=== PATIENT | male | born 1950 | race Caucasian/White ===

== ENCOUNTER 2018-01-16 13:23 | Inpatient (IN) | payer MEDICARE, OTHER ==
[2018-01-16 16:39] LABS: ADD MAN DIFF? NO
[2018-01-16 16:44] LABS: WHITE BLOOD COUNT 6.9 10^3/ul (4.8-10.8)
[2018-01-16 16:44] LABS: BASOPHILS % 0.4 % (0.0-2.0); EOSINOPHILS # 0.1 10^3/ul (0.0-0.5); EOSINOPHILS % 1.3 % (0.0-7.0); HEMATOCRIT 43.7 % (42.0-52.0); HEMOGLOBIN 14.5 g/dl (14.0-18.0); LYMPHOCYTES # 3.2 10^3/ul (0.8-2.9); LYMPHOCYTES % 46.8 % (15.0-51.0); MEAN CORPUSCULAR HEMOGLOBIN 30.1 pg (29.0-33.0); MEAN CORPUSCULAR HGB CONC 33.2 g/dl (32.0-37.0); MEAN CORPUSCULAR VOLUME 90.7 fl (82.0-101.0); MEAN PLATELET VOLUME 10.3 fl (7.4-10.4); MONOCYTE # 0.7 10^3/ul (0.3-0.9); MONOCYTES % 10.6 % (0.0-11.0); NEUTROPHIL # 2.8 10^3/ul (1.6-7.5); NEUTROPHILS % 40.8 % (39.0-77.0); PLATELET COUNT 178 10^3/UL (140-415); RED BLOOD COUNT 4.82 10^6/ul (4.70-6.10); RED CELL DISTRIBUTION WIDTH 13.6 % (11.5-14.5)
[2018-01-16 17:00] LABS: PROTIME 12.2 Sec (11.9-14.9)
[2018-01-16 17:03] LABS: ALANINE AMINOTRANSFERASE 46 IU/L (13-69); ALBUMIN 4.2 g/dl (3.3-4.9); ALBUMIN/GLOBULIN RATIO 1.31; ALKALINE PHOSPHATASE 67 IU/L (42-121); ANION GAP 16 (8-16); ASPARTATE AMINO TRANSFERASE 28 IU/L (15-46); BILIRUBIN,INDIRECT 0.4 mg/dl (0-1.1); BILIRUBIN,TOTAL 0.4 mg/dl (0.2-1.3); BLOOD UREA NITROGEN 18 mg/dl (7-20); CALCIUM 9.3 mg/dl (8.4-10.2); CARBON DIOXIDE 26 mmol/L (21-31); CHLORIDE 111 mmol/L (97-110); CREATININE 1.15 mg/dl (0.61-1.24); GLUCOSE 108 mg/dl (70-220); POTASSIUM 4.2 mmol/L (3.5-5.1); SODIUM 149 mmol/L (135-144); TOTAL PROTEIN 7.4 g/dl (6.1-8.1)
[2018-01-16 17:14] LABS: B-TYPE NATRIURETIC PEPTIDE 1740 PG/ML (0-125)
[2018-01-16 17:15] LABS: TROPONIN-I < 0.012 ng/ml (0.00-0.12)
[2018-01-16] MEDS: DILTIAZEM-D5W 125MG/125ML DRIP 125 ML IV (17:52)
[2018-01-16] MEDS: DILTIAZEM 50 MG INJ IV (17:53)
[2018-01-16] MEDS ORDERED: GLUCAGON 1 MG INJ IM (18:00)
[2018-01-16] MEDS ORDERED: ACETAMINOPHEN 325 MG TAB PO (18:00)
[2018-01-16] MEDS ORDERED: GLUCOSE GEL 15 GRAM TUBE PO ×2 (18:00)
[2018-01-16] MEDS ORDERED: MAGNESIUM HYDROXIDE 30ML CUP PO (18:00)
[2018-01-16] MEDS ORDERED: DOCUSATE SODIUM 100 MG CAP PO (18:00)
[2018-01-16] MEDS ORDERED: DEXTROSE 50% 50 ML SYRINGE IV ×2 (18:00)
[2018-01-16] MEDS ORDERED: GLUCOSE GEL 15 GRAM TUBE BUCCAL (18:00)
[2018-01-16] MEDS ORDERED: NACL 0.9% 3 ML SYG IV (18:00)
[2018-01-16] MEDS ORDERED: BISACODYL (EC) 5 MG TAB PO (18:00)
[2018-01-16] MEDS ORDERED: ONDANSETRON 4 MG INJ IV (18:00)
[2018-01-16] MEDS: INSULIN ASPART [NOVOLOG] 3 ML PEN SC ×2 (19:26→21:00)
[2018-01-16] MEDS ORDERED: APIXABAN 5 MG TABLET PO (21:00)
[2018-01-16] MEDS: CYCLOSPORINE 0.05% OPH DROPERETTE BOTH EYES (22:57)
[2018-01-16] MEDS: ALFUZOSIN (SR) 10 MG TAB PO (22:58)
[2018-01-16] MEDS: ATORVASTATIN 10 MG TAB PO (22:58)
[2018-01-16 23:23] LABS: CREATINE KINASE 109 IU/L (23-200)
[2018-01-16 23:36] LABS: CK INDEX 1.1
[2018-01-16 23:44] LABS: CK-MB 1.22 ng/ml (0.0-2.4); TROPONIN-I < 0.012 ng/ml (0.00-0.12)
[2018-01-17] MEDS: ACCU-CHEK XX (01:45)
[2018-01-17 06:19] LABS: ADD MAN DIFF? NO
[2018-01-17 06:25] LABS: BASOPHILS % 0.4 % (0.0-2.0); EOSINOPHILS # 0.1 10^3/ul (0.0-0.5); HEMATOCRIT 42.5 % (42.0-52.0); LYMPHOCYTES % 40.9 % (15.0-51.0); MEAN CORPUSCULAR HEMOGLOBIN 30.2 pg (29.0-33.0); MEAN CORPUSCULAR HGB CONC 32.9 g/dl (32.0-37.0); MEAN CORPUSCULAR VOLUME 91.6 fl (82.0-101.0); MEAN PLATELET VOLUME 10.4 fl (7.4-10.4); MONOCYTE # 0.6 10^3/ul (0.3-0.9); MONOCYTES % 11.2 % (0.0-11.0); NEUTROPHIL # 2.2 10^3/ul (1.6-7.5); NEUTROPHILS % 45.3 % (39.0-77.0); PLATELET COUNT 144 10^3/UL (140-415); RED BLOOD COUNT 4.64 10^6/ul (4.70-6.10); RED CELL DISTRIBUTION WIDTH 13.6 % (11.5-14.5)
[2018-01-17 06:25] LABS: WHITE BLOOD COUNT 4.9 10^3/ul (4.8-10.8)
[2018-01-17] MEDS: DILTIAZEM-D5W 125MG/125ML DRIP 125 ML IV ×2 (06:33→17:24)
[2018-01-17] MEDS: HYDROCODONE/APAP (5/325) TAB PO (06:43)
[2018-01-17 06:53] LABS: ANION GAP 12 (8-16); BLOOD UREA NITROGEN 17 mg/dl (7-20); CALCIUM 8.9 mg/dl (8.4-10.2); CARBON DIOXIDE 27 mmol/L (21-31); CHLORIDE 111 mmol/L (97-110); CHOL/HDL RATIO 4.2 RATIO; CHOLESTEROL 157 mg/dl (100-200); CREATININE 0.87 mg/dl (0.61-1.24); GLUCOSE 143 mg/dl (70-220); HDL CHOLESTEROL 37 mg/dl (30-78); LDL CHOLESTEROL,CALCULATED 95 mg/dl; MAGNESIUM 1.6 mg/dl (1.7-2.5); SODIUM 146 mmol/L (135-144); TRIGLYCERIDES 124 mg/dl (0-149)
[2018-01-17 07:31] LABS: HEMOGLOBIN A1C 5.6 % (0-5.9)
[2018-01-17] MEDS: INSULIN ASPART [NOVOLOG] 3 ML PEN SC ×4 (08:00→20:57)
[2018-01-17] MEDS: RIVAROXABAN 20 MG TABLET PO (08:36)
[2018-01-17] MEDS: ALLOPURINOL 100 MG TAB PO (08:36)
[2018-01-17] MEDS: CYCLOSPORINE 0.05% OPH DROPERETTE BOTH EYES ×2 (08:37→20:52)
[2018-01-17] MEDS: MAGNESIUM SULFATE 4 GM/100 ML 100 ML IVPB (11:53)
[2018-01-17] MEDS: ATORVASTATIN 10 MG TAB PO (20:52)
[2018-01-17] MEDS: ALFUZOSIN (SR) 10 MG TAB PO (22:49)
[2018-01-18] MEDS: ACCU-CHEK XX (01:34)
[2018-01-18 07:41] LABS: ADD MAN DIFF? NO
[2018-01-18 07:48] LABS: BASOPHILS % 0.4 % (0.0-2.0); EOSINOPHILS # 0.1 10^3/ul (0.0-0.5); EOSINOPHILS % 2.2 % (0.0-7.0); HEMATOCRIT 43.1 % (42.0-52.0); LYMPHOCYTES # 2.2 10^3/ul (0.8-2.9); LYMPHOCYTES % 49.2 % (15.0-51.0); MEAN CORPUSCULAR HEMOGLOBIN 29.8 pg (29.0-33.0); MEAN CORPUSCULAR HGB CONC 32.5 g/dl (32.0-37.0); MEAN CORPUSCULAR VOLUME 91.7 fl (82.0-101.0); MEAN PLATELET VOLUME 10.3 fl (7.4-10.4); MONOCYTE # 0.5 10^3/ul (0.3-0.9); MONOCYTES % 9.9 % (0.0-11.0); NEUTROPHIL # 1.7 10^3/ul (1.6-7.5); NEUTROPHILS % 38.1 % (39.0-77.0); PLATELET COUNT 142 10^3/UL (140-415); RED CELL DISTRIBUTION WIDTH 13.4 % (11.5-14.5)
[2018-01-18 07:48] LABS: WHITE BLOOD COUNT 4.5 10^3/ul (4.8-10.8)
[2018-01-18] MEDS: INSULIN ASPART [NOVOLOG] 3 ML PEN SC ×4 (08:15→21:00)
[2018-01-18] MEDS: CYCLOSPORINE 0.05% OPH DROPERETTE BOTH EYES ×2 (08:17→21:06)
[2018-01-18] MEDS: RIVAROXABAN 20 MG TABLET PO (08:17)
[2018-01-18] MEDS: ALLOPURINOL 100 MG TAB PO (08:17)
[2018-01-18 08:27] LABS: MAGNESIUM 1.5 mg/dl (1.7-2.5)
[2018-01-18 08:27] LABS: PHOSPHORUS 3.2 mg/dl (2.5-4.9)
[2018-01-18 08:29] LABS: ALANINE AMINOTRANSFERASE 37 IU/L (13-69); ALBUMIN 3.5 g/dl (3.3-4.9); ALKALINE PHOSPHATASE 52 IU/L (42-121); ANION GAP 13 (8-16); ASPARTATE AMINO TRANSFERASE 21 IU/L (15-46); BILIRUBIN,INDIRECT 0.5 mg/dl (0-1.1); BILIRUBIN,TOTAL 0.5 mg/dl (0.2-1.3); BLOOD UREA NITROGEN 21 mg/dl (7-20); CALCIUM 8.6 mg/dl (8.4-10.2); CARBON DIOXIDE 26 mmol/L (21-31); CHLORIDE 108 mmol/L (97-110); CREATININE 0.87 mg/dl (0.61-1.24); GLUCOSE 144 mg/dl (70-220); POTASSIUM 4.4 mmol/L (3.5-5.1); SODIUM 143 mmol/L (135-144); TOTAL PROTEIN 6.4 g/dl (6.1-8.1)
[2018-01-18] MEDS: MAGNESIUM SULFATE 3 GM in SOD CHLORIDE 0.9% 100 ML IVPB (14:12)
[2018-01-18] MEDS: ALFUZOSIN (SR) 10 MG TAB PO (21:06)
[2018-01-18] MEDS: ATORVASTATIN 10 MG TAB PO (21:07)
[2018-01-19] MEDS: ACCU-CHEK XX (02:00)
[2018-01-19] MEDS: INSULIN ASPART [NOVOLOG] 3 ML PEN SC ×5 (07:37→20:55)
[2018-01-19] MEDS: RIVAROXABAN 20 MG TABLET PO (08:26)
[2018-01-19] MEDS: ALLOPURINOL 100 MG TAB PO (08:26)
[2018-01-19] MEDS: ACETAMINOPHEN 325 MG TAB PO (08:37)
[2018-01-19] MEDS: CYCLOSPORINE 0.05% OPH DROPERETTE BOTH EYES ×2 (08:37→20:54)
[2018-01-19 11:16] LABS: ANION GAP 15 (8-16); BLOOD UREA NITROGEN 19 mg/dl (7-20); CALCIUM 9.1 mg/dl (8.4-10.2); CARBON DIOXIDE 23 mmol/L (21-31); CHLORIDE 112 mmol/L (97-110); CREATININE 0.91 mg/dl (0.61-1.24); GLUCOSE 177 mg/dl (70-220); MAGNESIUM 1.5 mg/dl (1.7-2.5); POTASSIUM 4.6 mmol/L (3.5-5.1); SODIUM 145 mmol/L (135-144)
[2018-01-19] MEDS: MAGNESIUM SULFATE 3 GM in DEXTROSE 5% 100 ML IVPB (14:38)
[2018-01-19] MEDS: ALFUZOSIN (SR) 10 MG TAB PO (20:54)
[2018-01-19] MEDS: ATORVASTATIN 10 MG TAB PO (20:54)
[2018-01-20] MEDS: ACCU-CHEK XX (02:00)
[2018-01-20 07:28] LABS: ADD MAN DIFF? NO
[2018-01-20 07:32] LABS: WHITE BLOOD COUNT 4.7 10^3/ul (4.8-10.8)
[2018-01-20 07:32] LABS: BASOPHILS % 0.6 % (0.0-2.0); EOSINOPHILS # 0.1 10^3/ul (0.0-0.5); EOSINOPHILS % 2.8 % (0.0-7.0); HEMATOCRIT 44.4 % (42.0-52.0); HEMOGLOBIN 14.7 g/dl (14.0-18.0); LYMPHOCYTES # 2.2 10^3/ul (0.8-2.9); LYMPHOCYTES % 47.6 % (15.0-51.0); MEAN CORPUSCULAR HEMOGLOBIN 30.1 pg (29.0-33.0); MEAN CORPUSCULAR HGB CONC 33.1 g/dl (32.0-37.0); MEAN PLATELET VOLUME 10.6 fl (7.4-10.4); MONOCYTE # 0.5 10^3/ul (0.3-0.9); NEUTROPHIL # 1.8 10^3/ul (1.6-7.5); PLATELET COUNT 138 10^3/UL (140-415); RED BLOOD COUNT 4.88 10^6/ul (4.70-6.10); RED CELL DISTRIBUTION WIDTH 13.3 % (11.5-14.5)
[2018-01-20 07:53] LABS: ANION GAP 8 (8-16); BLOOD UREA NITROGEN 21 mg/dl (7-20); CALCIUM 8.9 mg/dl (8.4-10.2); CARBON DIOXIDE 28 mmol/L (21-31); CHLORIDE 113 mmol/L (97-110); CREATININE 0.84 mg/dl (0.61-1.24); GLUCOSE 151 mg/dl (70-220); MAGNESIUM 1.7 mg/dl (1.7-2.5); POTASSIUM 4.2 mmol/L (3.5-5.1); SODIUM 145 mmol/L (135-144)
[2018-01-20] MEDS: HYDROCODONE/APAP (5/325) TAB PO (07:56)
[2018-01-20] MEDS: RIVAROXABAN 20 MG TABLET PO (08:24)
[2018-01-20] MEDS: ALLOPURINOL 100 MG TAB PO (08:24)
[2018-01-20] MEDS: CYCLOSPORINE 0.05% OPH DROPERETTE BOTH EYES ×2 (08:24→22:02)
[2018-01-20] MEDS: INSULIN ASPART [NOVOLOG] 3 ML PEN SC ×4 (08:25→21:00)
[2018-01-20] MEDS: DIAZEPAM 5 MG TAB PO (17:30)
[2018-01-20] MEDS: DIPHENHYDRAMINE 50 MG CAP PO (17:30)
[2018-01-20] MEDS: DIGOXIN 500 MCG INJ IV (18:07)
[2018-01-20] MEDS: AMIODARONE 150MG/D5W BOLUS 100 ML IV (18:07)
[2018-01-20] MEDS: AMIODARONE 900 MG in DEXTROSE 5% 482 ML IV (18:24)
[2018-01-20] MEDS: ATORVASTATIN 10 MG TAB PO (22:01)
[2018-01-20] MEDS: ALFUZOSIN (SR) 10 MG TAB PO (22:02)
[2018-01-21] MEDS: ACCU-CHEK XX (02:00)
[2018-01-21] MEDS: INSULIN ASPART [NOVOLOG] 3 ML PEN SC ×3 (08:00→17:30)
[2018-01-21 08:39] LABS: ADD MAN DIFF? NO
[2018-01-21] MEDS: CYCLOSPORINE 0.05% OPH DROPERETTE BOTH EYES (08:41)
[2018-01-21] MEDS: RIVAROXABAN 20 MG TABLET PO (08:41)
[2018-01-21] MEDS: ALLOPURINOL 100 MG TAB PO (08:41)
[2018-01-21 08:48] LABS: BASOPHILS % 0.5 % (0.0-2.0); EOSINOPHILS # 0.1 10^3/ul (0.0-0.5); EOSINOPHILS % 2.5 % (0.0-7.0); HEMATOCRIT 44.8 % (42.0-52.0); HEMOGLOBIN 14.8 g/dl (14.0-18.0); LYMPHOCYTES # 2.1 10^3/ul (0.8-2.9); MEAN CORPUSCULAR HEMOGLOBIN 30.2 pg (29.0-33.0); MEAN CORPUSCULAR VOLUME 91.4 fl (82.0-101.0); MEAN PLATELET VOLUME 10.9 fl (7.4-10.4); MONOCYTE # 0.5 10^3/ul (0.3-0.9); MONOCYTES % 11.5 % (0.0-11.0); NEUTROPHIL # 1.6 10^3/ul (1.6-7.5); NEUTROPHILS % 36.5 % (39.0-77.0); PLATELET COUNT 143 10^3/UL (140-415); RED CELL DISTRIBUTION WIDTH 13.1 % (11.5-14.5)
[2018-01-21 08:48] LABS: WHITE BLOOD COUNT 4.4 10^3/ul (4.8-10.8)
[2018-01-21 09:21] LABS: INR 1.06; PROTIME 13.9 Sec (11.9-14.9); PT RATIO 1.1
[2018-01-21 09:22] LABS: ANION GAP 14 (8-16); BLOOD UREA NITROGEN 21 mg/dl (7-20); CALCIUM 8.5 mg/dl (8.4-10.2); CARBON DIOXIDE 23 mmol/L (21-31); CHLORIDE 110 mmol/L (97-110); CREATININE 0.91 mg/dl (0.61-1.24); GLUCOSE 167 mg/dl (70-220); MAGNESIUM 1.6 mg/dl (1.7-2.5); PARTIAL THROMBOPLASTIN TIME 30.8 Sec (25.0-35.0); POTASSIUM 4.3 mmol/L (3.5-5.1); SODIUM 143 mmol/L (135-144)
[2018-01-21 09:32] LABS: TROPONIN-I < 0.012 ng/ml (0.00-0.12)
[2018-01-21] MEDS: ETOMIDATE 20 MG INJ (11:04)
[2018-01-21] MEDS: PROPOFOL 20 ML (11:04)
[2018-01-21] MEDS ORDERED: EPHEDrine SULFATE 50 MG/5 ML SYG IV (12:00)
[2018-01-21] MEDS ORDERED: hydrALAzine 20 MG INJ IV (12:00)
[2018-01-21] MEDS ORDERED: LABETALOL HCL 20MG INJ IV (12:00)
[2018-01-21] MEDS: MAGNESIUM SULFATE 2 GM/50 ML 50 ML IVPB (12:51)
== END 2018-01-21 18:50 | disposition home health service (06) | DRG 308 ==
LOC: MS4 17:43 → E/R 13:23
DX: I48.91 Unspecified atrial fibrillation (principal); I50.33 Acute on chronic diastolic (congestive) heart failure; E87.0 Hyperosmolality and hypernatremia; Z79.01 Long term (current) use of anticoagulants; I11.0 Hypertensive heart disease with heart failure; I25.10 Atherosclerotic heart disease of native coronary artery without angina pectoris; E78.5 Hyperlipidemia, unspecified; N40.0 Benign prostatic hyperplasia without lower urinary tract symptoms; N39.43 Post-void dribbling; E66.9 Obesity, unspecified; Z68.30 Body mass index [BMI] 30.0-30.9, adult; E79.0 Hyperuricemia without signs of inflammatory arthritis and tophaceous disease; E83.42 Hypomagnesemia; I51.3 Intracardiac thrombosis, not elsewhere classified
CPT/HCPCS: 36415; 70450; 71045; 80048; 80053; 80061; 82550; 82553; 82962; 83036; 83735; 83880; 84100; 84443; 84484; 85025; 85610; 85730; 93005; 93306; 93312; 93320; 93325; 96365; 96366; 96375; 99285-25